=== PATIENT | male | born 1960 | race Caucasian/White ===

== ENCOUNTER 2023-06-19 11:09 | Emergency (ER) | payer OTHER, SELFPAY ==
[2023-06-19] VITALS (12 sets, daily range): BP systolic 193–217; BP diastolic 91–129; PULSE 70–78; RESP 18–23; TEMP 36.6; O2SAT 94–97; BMI 35.6
[2023-06-19 11:54] LABS: Add Manual Diff / Slide Review NO; Basophils Absolute Auto 100 /uL (0-100); Eosinophils Absolute Auto 100 /uL (0-450); Eosinophils Percent Auto 0.6 % (2-4); Hematocrit 47.1 % (41-53); Lymphocytes Absolute Auto 1400 /uL (1100-4500); Lymphocytes Percent Auto 12.5 % (25-40); Mean Corpuscular HGB Conc 33.9 % (30-36); Mean Corpuscular Volume 82.6 fL (80-100); Monocytes Absolute Auto 1000 /uL (0-900); Monocytes Percent Auto 8.4 % (3-14); Neutrophils Absolute Auto 8800 /uL (1500-7000); Neutrophils Percent Auto 77.5 % (50-75); Platelet Count 202 X10^3/uL (150-400); Red Cell Distribution Width 14.9 % (11.6-14.8); White Blood Cell Count 11.3 X10^3/uL (4.5-11.0)
[2023-06-19 11:55] LABS: Alanine Aminotransferase 24 IU/L (<50); Albumin 4.3 g/dL (3.5-5.0); Albumin Globulin Ratio 1.2 (1.0-2.8); Alkaline Phosphatase 121 U/L (38-126); Aspartate Aminotransferase 24 IU/L (17-59); BUN Creatinine Ratio 11.7 (6-22); Bilirubin Total 0.9 mg/dL (0.2-1.3); Blood Urea Nitrogen 21 mg/dL (9-20); Calcium 9.9 mg/dL (8.4-10.2); Carbon Dioxide 31 mmol/L (22-32); Chloride 98 mmol/L (98-107); Estimated Glomerular Filt Rate 42 mL/min (>60); Globulin 3.5 g/dL (1.7-4.1); Glucose 196 mg/dL (80-110); HEMOLYSIS < 15 (0-50); Lipase 32 U/L (23-300); Potassium 4.1 mmol/L (3.4-5.1); Sodium 137 mmol/L (137-145); Total Protein 7.8 g/dL (6.3-8.2)
--- NOTE | 2023-06-19 12:16 | ED.ABDPAIN ---
HPI - Abdominal Pain General Chief Complaint: Abdominal Pain Stated Complaint: abd pain by gallbladder Time Seen by Provider: 06/19/23 12:09 Source: patient Mode of arrival: Ambulatory Limitations: no limitations History of Present Illness HPI narrative: 62-year-old male with history of hypertension and dyslipidemia complaint of right-sided abdominal pain that started yesterday in the morning. Patient states it woke him up from sleep. He states got quite intense in the morning he and his drove to the ER but it improved so he was not seen. Patient returned home he did have nausea and vomiting yesterday in the morning. States pain has since improved but then started to wrap around into the right flank. He states pain has increased this morning particularly after he had a cup of coffee he states that was like taking poison and his pain significantly increased. He had not had similar symptoms to this in the past. No fevers or chills he is aware of. He states nauseated and vomiting yesterday. No vomiting today. States he has been somewhat constipated, last bowel movement was 3 days ago. He states flatus is present but minimal. Denies any dysuria, urgency frequency or hematuria. States he has had a little bit less output. States he normally on lisinopril and atorvastatin, ran out several weeks ago and has not refilled his medications. Denies any prior surgeries. States allergic to penicillin develops anaphylaxis. No tobacco, alcohol or recreation drugs. His primary care is at the [facility] on [facility]. Related Data Home Medications Medication Instructions Recorded Confirmed atorvastatin 10 mg tablet 10 mg DAILY 06/19/23 06/19/23 lisinopril 20 mg tablet 20 mg DAILY 06/19/23 06/19/23 Previous Rx's Medication Instructions Recorded metoprolol succinate 50 mg 50 mg PO DAILY #30 tabs 06/19/23 tablet,extended release 24 hr oxycodone 5 mg tablet 5 mg PO Q6H PRN pain #20 tabs 06/19/23 tamsulosin 0.4 mg capsule (Flomax) 0.4 mg PO DAILY #7 caps 06/19/23 Allergies Allergy/AdvReac Type Severity Reaction Status Date / Time Penicillins Allergy Verified 06/19/23 11:12 Review of Systems Review of Systems ROS Unobtainable: All systems reviewed & are unremarkable except as noted in HPI and below Patient History Social History Smoking Status: Never smoker Smoking Status: Never smoker alcohol intake frequency: holidays/special occasions only Substance Use Type: does not use Exam Narrative Exam Narrative: GENERAL: Alert and oriented x three, obese male in mild distress. HEENT: Head normocephalic, atraumatic, EOMI, pupils reactive, face symmetric, moist mucous membranes NECK: Supple, full range of motion CARDIOVASCULAR: Regular rate and rhythm without murmurs, rubs or gallops. RESPIRATORY: Breath sounds equal bilaterally, no wheezes rales or rhonchi. ABDOMEN: Soft, patient has a left mid abdomen tenderness on the lateral wall. No obvious hernia palpated. Patient has pain with very deep palpation but no guarding or rebound no rigidity or mass.. Normoactive bowel sounds all 4 quadrants. No bruit or pulsatile mass. No changes to skin, no rash, warmth or erythema. : No CVA tenderness bilaterally. EXTREMITIES: Normal range of motion, no clubbing or edema. Neurovascularly intact NEUROLOGICAL: Cranial nerves II through XII grossly intact. Moving all extremities SKIN: Warm, dry, no petechiae, no rashes or lesions. Initial Vital Signs Initial Vital Signs: Vital Signs Temperature 97.9 F 06/19/23 11:13 Pulse Rate 77 06/19/23 11:13 Respiratory Rate 20 06/19/23 11:13 Blood Pressure 193/129 H 06/19/23 11:13 Pulse Oximetry 96 06/19/23 11:13 Oxygen Delivery Method Room Air 06/19/23 11:13 Course Orders Ordered: ED Orders 06/19/23 11:30 Complete Blood Count AUTO DIFF Stat Comprehensive Metabolic Panel Stat Lipase Stat 06/19/23 12:25 CT abdomen pelvis w con Stat 06/19/23 12:50 Urine Microscopic Stat Discontinued Medications Sodium Chloride (Normal Saline 0.9%) 1,000 mls @ 1,000 mls/hr IV BOLUS ONE Stop: 06/19/23 13:24 Last Infusion: 06/19/23 13:40 Dose: Infused Documented By: Admin: 06/19/23 12:35 Dose: 1,000 mls/hr Documented By: RB Morphine Sulfate (Morphine 4 Mg/Ml Inj) 4 mg IV NOW ONE Stop: 06/19/23 12:26 Last Admin: 06/19/23 12:36 Dose: 4 mg Documented By: ANT Ondansetron HCl (Ondansetron 4 Mg Odt) 4 mg PO NOW PRN PRN Reason: Nausea And Vomiting Ondansetron HCl (Ondansetron 4 Mg/2 Ml Inj) 4 mg IV NOW PRN PRN Reason: Nausea And Vomiting Vital Signs Vital signs: Vital Signs - 8 hr 06/19/23 11:13 06/19/23 11:28 06/19/23 11:29 Temperature 97.9 F Pulse Rate 77 75 74 Respiratory Rate 20 Blood Pressure 193/129 H Pulse Oximetry 96 95 94 Oxygen Delivery Method Room Air 06/19/23 11:29 06/19/23 11:30 06/19/23 11:31 Temperature Pulse Rate 77 78 Respiratory Rate Blood Pressure 217/101 H Pulse Oximetry 96 96 Oxygen Delivery Method 06/19/23 11:31 06/19/23 12:00 06/19/23 12:01 Temperature Pulse Rate 72 73 Respiratory Rate 23 23 Blood Pressure 211/112 H Pulse Oximetry 94 95 Oxygen Delivery Method 06/19/23 12:01 06/19/23 12:45 06/19/23 12:48 Temperature Pulse Rate 70 70 Respiratory Rate 20 18 Blood Pressure 193/91 H Pulse Oximetry 97 96 Oxygen Delivery Method 06/19/23 12:48 06/19/23 13:00 06/19/23 13:01 Temperature Pulse Rate 72 71 Respiratory Rate 19 Blood Pressure 214/104 H Pulse Oximetry 95 95 Oxygen Delivery Method 06/19/23 13:01 06/19/23 13:30 06/19/23 13:30 Temperature Pulse Rate 71 Respiratory Rate 22 Blood Pressure 211/110 H 199/103 H Pulse Oximetry 95 Oxygen Delivery Method MDM - Abdominal Pain Lab Data 06/19/23 11:30 06/19/23 11:30 Labs: Lab Results 06/19/23 06/19/23 Range/Units 11:30 12:50 WBC 11.3 H (4.5-11.0) X10^3/uL RBC 5.70 (4.5-5.9) X10^6/uL Hgb 16.0 (13.5-17.5) g/dL Hct 47.1 (41-53) % MCV 82.6 (80-100) fL MCH 28.0 (26-34) PG MCHC 33.9 (30-36) % RDW 14.9 H (11.6-14.8) % Plt Count 202 (150-400) X10^3/uL Neut % (Auto) 77.5 H (50-75) % Lymph % (Auto) 12.5 L (25-40) % [place] % (Auto) 8.4 (3-14) % Eos % (Auto) 0.6 L (2-4) % Baso % (Auto) 1.0 (0-2) % Neut # (Auto) 8800 H (1066-7134) /uL Lymph # (Auto) 1400 (0635-3904) /uL [place] # (Auto) 1000 H (0-900) /uL Eos # (Auto) 100 (0-450) /uL Baso # (Auto) 100 (0-100) /uL Sodium 137 (137-145) mmol/L Potassium 4.1 (3.4-5.1) mmol/L Chloride 98 (98-107) mmol/L Carbon Dioxide 31 (22-32) mmol/L BUN 21 H (9-20) mg/dL Creatinine 1.79 H (0.66-1.25) mg/dL Estimated GFR 42 L (>60) mL/min BUN/Creatinine Ratio 11.7 (6-22) Glucose 196 H (80-110) mg/dL Calcium 9.9 (8.4-10.2) mg/dL Total Bilirubin 0.9 (0.2-1.3) mg/dL AST 24 (17-59) IU/L ALT 24 (<50) IU/L Alkaline Phosphatase 121 (38-126) U/L Total Protein 7.8 (6.3-8.2) g/dL Albumin 4.3 (3.5-5.0) g/dL Globulin 3.5 (1.7-4.1) g/dL Albumin/Globulin Ratio 1.2 (1.0-2.8) Lipase 32 (23-300) U/L Urine RBC 0-1/hpf (0-5/HPF) Urine WBC None seen (0-5/HPF) Ur Squamous Epith Cells 0-1 /hpf (0-5/HPF) Urine Bacteria None seen (None) Ur Culture Indicated? Cult not indicated Point of care testing: Urine Dip Bedside Urine Glucose 100 mg/dl Bedside Urine Bilirubin - Negative Bedside Urine Ketone - Negative Urine Specific [place] 1.015 Bedside Urine Occult Blood +/- Bedside Urine pH 6.0 Bedside Urine Protein - Negative Bedside Urine Urobilinogen - Negative Bedside Urine Nitrite - Negative Bedside Urine Leukocytes - Negative Esterase Imaging Data CT scan - abdomen/pelvis: Radiologist's Impression: [address] [address] [address] Scan Report Signed Patient: David Augustin MR#: [id number] : 1960 Acct:[id number] Age/Sex: 62 / M Date of Service: 06/19/23 Loc: ED Accession Number: [id number] Procedure: CT abdomen pelvis w con Ordering Provider: Raysa Wells D.O. PROCEDURE: CT ABDOMEN PELVIS W CON INDICATIONS: right abd pain, flank, pain w/ palp upper and lower TECHNIQUE: After the administration of intravenous contrast, axial sections acquired from the lung bases to the pubic symphysis. Coronal and sagittal reformats were performed. For radiation dose reduction, the following was used: automated exposure control, adjustment of mA and/or kV according to patient size. COMPARISON: None. FINDINGS: Image quality: Diagnostic. Lower Chest: No significant findings. ABDOMEN: Liver: No solid mass. Diffuse fatty infiltration of the liver. Gallbladder: No radiopaque gallstones or wall thickening. Biliary ducts: No biliary dilation. Pancreas: No ductal dilation. Spleen: Size is within normal limits. Adrenal Glands: 1.8 centimeter low-density right adrenal adenoma. Kidneys and Ureters: 1-2 millimeter right UVJ stone with mild right-sided hydroureteronephrosis. No solid mass. No complex renal cystic lesion which requires follow up. Multiple left peripelvic renal cysts. Stomach and Bowel: Normal colonic caliber, without significant wall thickening. Colonic diverticula without evidence of diverticulitis. The appendix is normal. Peritoneum: No abnormal intraperitoneal fluid. No free air. Ventral Wall: No hernia. Abdominal Nodes: No retroperitoneal or mesenteric adenopathy by size criteria. Vessels: Aorta and inferior vena cava are normal in size. PELVIS: Pelvic Organs: Unremarkable. Bladder: Unremarkable. Pelvic Nodes: No enlarged lymph nodes. Miscellaneous: No inguinal hernias are seen. Bones: No aggressive osseous abnormality. Spine degenerative disc disease and facet arthropathy. IMPRESSION: 1-2 millimeter right UVJ stone with mild right hydroureteronephrosis. Colonic diverticulosis without evidence of diverticulitis. Hepatic steatosis. 1.8 centimeter right adrenal adenoma. Dictated by: Asiya Schreiber MD, PhD on 06/19/2023 at 12:48 Approved by: Asiya Schreiber MD, PhD on 06/19/2023 at 12:53 [facility] Narrative Medical decision making narrative: 62-year-old male with a proximally 24 hours of right-sided abdominal pain he describes it initially more upper quadrant but it is also in the mid to lower abdomen. He states worse with coffee. But has been waxing waning intensity. He also notes it gets into the flank. Patient states he has not had similar in the past. He is mildly tender to palpation with deep palpation but is sort of mid abdomen on the lateral side not quite consistent with gallbladder. Could be consistent with prior appendicitis. Does not have any flank pain on examination. Patient is hypertensive here in the department but states he has been off his medications including his lisinopril 20 mg for several weeks. Labs are notable for creatinine of 1.79 patient does not recall being told his creatinine is elevated in the past. He does not have any priors for comparison. BUN 21 sodium potassium chloride appropriate range glucose is 196 LFTs and lipase are negative. Patient is a white count 11.3 normal hemoglobin and platelets with mild leftward shift. Urine sample shows blood and glucose, has 0-1 RBCs, no white cells was 0-[address] abdomen pelvis to evaluate for kidney stone, appendicitis, obstructive cause, gallbladder versus other. Imaging shows 1-2 mm right UVJ stone with mild right hydro ureteral nephrosis. Colonic diverticulosis but no evidence of diverticulitis, hepatic steatosis 1.8 cm right adrenal adenoma. Diffuse fatty infiltration of the liver. Patient received fluids, Zofran and pain medication and is improved. Reviewed findings from today. Discharge Plan Departure Patient Disposition: Home Clinical Impression: Kidney stone on right side, Creatinine elevation, Hepatic steatosis, Adrenal adenoma Activity Restrictions/Additional Instructions: Please follow up with urology if you are not improving in the next several days. Call to set up an appointment, contact information is below. Your renal function slightly elevated, I would recommend holding your lisinopril and altering your blood pressure medication for now. Follow-up with your primary care for recheck of your creatinine and to adjust your blood pressure medications as needed. Your imaging shows a 1-2 mm right a kidney stone adjacent to the bladder, there is incidentally also found to be 1.8 cm right adrenal adenoma as well as some hepatic steatosis. Share these findings with your physician. Continue to hold your lisinopril and take metoprolol 1 tablet daily. Take Flomax once daily until gone. You may take Tylenol up to a 1000 mg every 6 hours as needed. Take oxycodone 1-2 tablets every 6 hours as needed for pain. Prescription sent to [facility] Return for fevers, new or worsening abdominal back or flank pain, persistent vomiting, lightheadedness or passing out or other new or concerning changes. Prescriptions: New oxycodone 5 mg tablet 5 mg PO Q6H PRN (Reason: pain) Qty: 20 0RF tamsulosin [Flomax] 0.4 mg capsule 0.4 mg PO DAILY Qty: 7 0RF metoprolol succinate 50 mg tablet extended release 24 hr 50 mg PO DAILY Qty: 30 0RF No Action lisinopril 20 mg Tablet 20 mg DAILY atorvastatin 10 mg Tablet 10 mg DAILY Referrals: Mariann Martínez MD [Physician] - Stand Alone Forms: Patient Portal/API
--- NOTE | 2023-06-19 12:25 | DI.CT.S_ITS ---
PROCEDURE: CT ABDOMEN PELVIS W CON INDICATIONS: right abd pain, flank, pain w/ palp upper and lower TECHNIQUE: After the administration of intravenous contrast, axial sections acquired from the lung bases to the pubic symphysis. Coronal and sagittal reformats were performed. For radiation dose reduction, the following was used: automated exposure control, adjustment of mA and/or kV according to patient size. COMPARISON: None. FINDINGS: Image quality: Diagnostic. Lower Chest: No significant findings. ABDOMEN: Liver: No solid mass. Diffuse fatty infiltration of the liver. Gallbladder: No radiopaque gallstones or wall thickening. Biliary ducts: No biliary dilation. Pancreas: No ductal dilation. Spleen: Size is within normal limits. Adrenal Glands: 1.8 centimeter low-density right adrenal adenoma. Kidneys and Ureters: 1-2 millimeter right UVJ stone with mild right-sided hydroureteronephrosis. No solid mass. No complex renal cystic lesion which requires follow up. Multiple left peripelvic renal cysts. Stomach and Bowel: Normal colonic caliber, without significant wall thickening. Colonic diverticula without evidence of diverticulitis. The appendix is normal. Peritoneum: No abnormal intraperitoneal fluid. No free air. Ventral Wall: No hernia. Abdominal Nodes: No retroperitoneal or mesenteric adenopathy by size criteria. Vessels: Aorta and inferior vena cava are normal in size. PELVIS: Pelvic Organs: Unremarkable. Bladder: Unremarkable. Pelvic Nodes: No enlarged lymph nodes. Miscellaneous: No inguinal hernias are seen. Bones: No aggressive osseous abnormality. Spine degenerative disc disease and facet arthropathy. IMPRESSION: 1-2 millimeter right UVJ stone with mild right hydroureteronephrosis. Colonic diverticulosis without evidence of diverticulitis. Hepatic steatosis. 1.8 centimeter right adrenal adenoma. Dictated by: Asiya Schreiber MD, PhD on 06/19/2023 at 12:48 Approved by: Asiya Schreiber MD, PhD on 06/19/2023 at 12:53
[2023-06-19] MEDS: SODIUM CHLORIDE 0.9% 1,000 ML 1000 ML IV (12:35)
[2023-06-19] MEDS: MORPHINE 4 MG/ML INJ IV (12:36)
[2023-06-19 13:10] LABS: Bacteria Urine None Seen; Culture Indicated Urine Cult Not Indicated; RBC Urine 0-1/HPF (0-5/HPF); Squamous Epithelial Cell Urine 0-1 /HPF (0-5/HPF); WBC Urine None Seen (0-5/HPF)
== END 2023-06-19 14:01 | disposition home or self-care (01) ==
PROVIDERS: Emergency Provider Emergency Medicine
DX: N20.0 Calculus of kidney (principal); D35.00 Benign neoplasm of unspecified adrenal gland; K76.0 Fatty (change of) liver, not elsewhere classified; R79.89 Other specified abnormal findings of blood chemistry
CPT/HCPCS: 36415; 74177; 80053; 81003; 81015; 83690; 85025; 96374; 99284; J2270; Q9967